=== PATIENT | female | born 1945 | race Caucasian/White ===

== ENCOUNTER 2019-10-30 14:37 | Inpatient (IN) | payer OTHER ==
[~2019-10-30] VITALS: Ht 157.5 cm; Wt 61.7 kg
[~2019-10-30 14:37] MED LIST: GLYCOPYRROLATE 0.2 MG/ML VIAL IJ ONE; LR 1,000 ML IV.SOLN IV ONE; MIDAZOLAM HCL 5 MG/5 ML VIAL IVP ONE; NEOSTIGMINE METHYLSULFATE 1 MG/ML, 10 ML VIAL IVP ONE; PROPOFOL 200MG/ 20ML VIAL (DIPRIVAN) IV ONE; ROCURONIUM BROMIDE 10 MG/ML (ZEMURON) IV ONE; SEVOFLURANE 15 MIN GAS INH ONE; fentaNYL CITRATE/PF 100 MCG/2 ML AMP IVP ONE
[2019-10-30 14:50] VITALS: BP_SYST 162
--- NOTE | 2019-10-30 14:52 | NUR ---
Placed in room 08. Placed on hall monitor, blood pressure machine and pulse oximeter. To gown for exam. Side rails up. Report given to XENIA Stevens.
--- NOTE | 2019-10-30 14:53 | NUR ---
ER Dr. Carmona at bedside examining patient.
--- NOTE | 2019-10-30 15:01 | NUR ---
Patient is awake, alert, and oriented x4. Family is at bedside. Patient states she drank coffee this morning and she isn't supposed to because it causes heartburn. Patient had heartburn around 1100 today, she states she does not have it at this time. Her family stated she came in due to her smartwatch notifying her of a high heart rate. Patient denies nausea, vomiting, SOB.
[2019-10-30 15:15] LABS: BASOPHILS % (AUTO) 0.2 % (0.0-2.0); EOSINOPHILS % (AUTO) 0.1 % (0.0-4.0); HEMATOCRIT 39.4 % (36-48); HEMOGLOBIN 12.7 g/dL (12.0-16.0); LYMPHOCYTES # (AUTO) 0.3 K/uL (1.0-5.5); LYMPHOCYTES % (AUTO) 4.9 % (20.5-51.5); MEAN CORPUSCULAR HEMOGLOBIN 26 pg (27-31); MEAN CORPUSCULAR HGB CONC 32 % (32-36); MEAN CORPUSCULAR VOLUME 81 fL (79.0-98.0); MONOCYTES % (AUTO) 0.4 % (1.7-9.3); NEUTROPHILS # (AUTO) 6.5 K/uL (1.8-7.7); NEUTROPHILS % (AUTO) 94.4 % (40.0-70.0); PLATELET COUNT (AUTO) 264 K/uL (130-430); RED BLOOD CELL COUNT(AUTO) 4.84 MIL/uL (4.2-6.2); RED CELL DISTRIBUTION WIDTH 13.9 % (9.0-15.0); WHITE BLOOD COUNT (AUTO) 6.9 K/uL (4.8-10.8)
[2019-10-30 15:24] LABS: ANION GAP 12 (5-15); CHLORIDE 97 mmol/L (98-107); CREATININE 0.94 mg/dL (0.55-1.30); GLUCOSE 156 mg/dL (70-99); POTASSIUM 3.5 mmol/L (3.5-5.1); SODIUM SERUM 138 mmol/L (136-145); UREA NITROGEN, BLOOD 18 mg/dL (8-21)
[2019-10-30 15:30] LABS: ALANINE AMINOTRANSFERASE 171 U/L (12-78); ALBUMIN 3.9 g/dL (3.4-4.8); ASPARTATE AMINOTRANSFERASE 353 U/L (10-37); TOTAL BILIRUBIN 1.3 mg/dL (0.0-1.0)
[2019-10-30] MEDS ORDERED: ONDANSETRON HCL 4 MG/2 ML VIAL IVP ONE (15:45)
[2019-10-30] MEDS ORDERED: NACL 0.9% 2,500 ML IV ONE (16:45)
[2019-10-30] MEDS ORDERED: VANCOMYCIN HCL 1,000 MG in NS 250 ML IV ONE (16:45)
[2019-10-30] MEDS ORDERED: PIPERACILLIN/TAZO 3.375 GM in NS 50 ML IV ONE (16:45)
[2019-10-30] MEDS ORDERED: PIPERACILLIN/TAZOBACTAM 3.375 GM/VIAL (ZOSYN) IV ONE ×2 (17:06→21:26)
[2019-10-30] MEDS ORDERED: VANCOMYCIN HCL 1000 MG/VIAL IV ONE (17:06)
--- NOTE | 2019-10-30 17:21 | NUR ---
Pt son, Enrique, would like to be notified of any change in pt condition.
--- NOTE | 2019-10-30 17:22 | NUR ---
Dr. Caromna notified of abnormal values. He verbalized understanding. Addendum: 10/30/19 at 1818 by [email or web address] Abnormal vitals.
--- NOTE | 2019-10-30 17:51 | NUR ---
Unable to complete medication reconcilliation at this time.
--- NOTE | 2019-10-30 17:52 | NUR ---
Patient will be admitted to care of Dr. Langley. Admitted to medsurg unit. Waiting for room assignement. Belongings list completed. Complete and up to date summary report printed. SBAR report to be given at bedside with opportunity for questions.
--- NOTE | 2019-10-30 18:14 | NUR ---
Transfer to [facility] via ACLS protocol. EMT present. IV present no signs or symptoms of infiltration.
--- NOTE | 2019-10-30 18:21 | NUR ---
ADMISSION: The patient, TOBIAS GONZALEZ, 74 y/o, F admitted by SHAAN PERKINS MD, was given written information regarding hospital policies, unit procedures and contact persons.
--- NOTE | 2019-10-30 18:30 | NUR ---
Opening Note received bedside SBAR report from AUTOMATION OPERATOR, patient brought to room via gurney, patient resting in bed, no acute distress noted, respirations even and unlabored on 2L nasal cannula, patient denies any pain, educated patient on use of call light and asked to call for assistance, patient verbalized understanding, call light in reach, bed in low and locked position, bed alarm on, patients family at bedside.
[2019-10-30 18:50] VITALS: BP_SYST 115
[2019-10-30 19:10] VITALS: BP_SYST 106
--- NOTE | 2019-10-30 19:23 | NUR ---
Closing Note bedside SBAR report given to receiving RN, patient resting in bed, respirations even and unlabored on 2L nasal cannula, no acute distress noted, patients family at bedside, educated patient on use of call light and asked to call for assistance, patient verbalized understanding, call light in reach, bed in low and locked position, bed alarm on, care endorsed to maintenance supervisor 2nd shift RN.
[2019-10-30 19:30] VITALS: BP_SYST 112
--- NOTE | 2019-10-30 19:30 | NUR ---
OPENING NOTES Received patient resting in bed, 2L NC, no acute respiratory distress observed, IVF running, dressings c/d/i. Family at bedside. Oriented patient to plan of care and call light, NPO at midnight. Call light within reach, bed alarm on, bed at lowest position. Will continue to monitor.
--- NOTE | 2019-10-30 20:30 | NUR ---
Titrated patient's oxygen to 1L NC, patient tolerating well at 95% O2. Discontinued IV site at Left AC due to infiltration, catheter intact. Will continue to monitor.
[2019-10-30 23:00] VITALS: BP_SYST 104
[2019-10-30] MEDS ORDERED: ALBUTEROL SULFATE 0.083% 2.5 MG/3 ML VIAL.NEB INH PRN (23:00)
[2019-10-30] MEDS ORDERED: MORPHINE 2 MG/ML INJ. SYRINGE IVP PRN (23:00)
[2019-10-30] MEDS ORDERED: ACETAMINOPHEN 325 MG TABLET PO PRN (23:00)
[2019-10-30] MEDS ORDERED: MORPHINE 4 MG/ML INJ. SYRINGE IVP PRN (23:00)
[2019-10-30] MEDS ORDERED: ONDANSETRON HCL 4 MG/2 ML VIAL IVP PRN (23:00)
[2019-10-31] VITALS (10 sets, daily range): BP systolic 93–129
--- NOTE | 2019-10-31 00:05 | NUR ---
Patient is resting, no signs of acute respiratory distress observed. Blankets provided. Will continue to monitor.
[2019-10-31] MEDS: NACL 0.9% 1,000 ML IV SCH ×3 (00:10→18:20)
[2019-10-31] MEDS: PIPERACILLIN/TAZO 3.375/DEX-IS 50 ML IV SCH ×7 (00:10→23:09)
--- NOTE | 2019-10-31 01:11 | NUR ---
CONSULTATION PAGED/CALLED Reason for Consultation: PRE OP Person Who was Notified: GUILLERMO Consulting Physician: Musical Instrument Maker Specialty: CARDIO Ordering Physician:
--- NOTE | 2019-10-31 02:22 | NUR ---
Patient is resting, eyes closed. No signs of distress observed. Will continue to monitor.
--- NOTE | 2019-10-31 04:40 | NUR ---
Patient is asleep, rise and fall of chest observed. IVF running, Call light within reach, bed alarm on, bed at lowest position. will continue to monitor.
[2019-10-31 04:56] LABS: BASOPHILS % (AUTO) 0.1 % (0.0-2.0); HEMOGLOBIN 11.5 g/dL (12.0-16.0); LYMPHOCYTES # (AUTO) 0.5 K/uL (1.0-5.5); LYMPHOCYTES % (AUTO) 2.4 % (20.5-51.5); MEAN CORPUSCULAR HEMOGLOBIN 26 pg (27-31); MEAN CORPUSCULAR HGB CONC 33 % (32-36); MEAN CORPUSCULAR VOLUME 80 fL (79.0-98.0); MONOCYTES # (AUTO) 0.5 K/uL (0.0-1.0); MONOCYTES % (AUTO) 2.5 % (1.7-9.3); PLATELET COUNT (AUTO) 200 K/uL (130-430); RED BLOOD CELL COUNT(AUTO) 4.36 MIL/uL (4.2-6.2); RED CELL DISTRIBUTION WIDTH 13.9 % (9.0-15.0)
[2019-10-31 05:17] LABS: ALANINE AMINOTRANSFERASE 383 U/L (12-78); ALBUMIN 2.8 g/dL (3.4-4.8); ANION GAP 11 (5-15); ASPARTATE AMINOTRANSFERASE 428 U/L (10-37); CALCIUM 7.6 mg/dL (8.4-11.0); CHLORIDE 104 mmol/L (98-107); CREATININE 0.99 mg/dL (0.55-1.30); GLUCOSE 145 mg/dL (70-99); SODIUM SERUM 141 mmol/L (136-145); TOTAL BILIRUBIN 2.7 mg/dL (0.0-1.0); UREA NITROGEN, BLOOD 19 mg/dL (8-21)
[2019-10-31 07:13] LABS: BILIRUBIN,URINE 2+ (NEGATIVE); BLOOD, URINE NEGATIVE (NEGATIVE); CLARITY/URINE CLEAR (CLEAR); COLOR,URINE YELLOW (YELLOW); GLUCOSE,URINE NEGATIVE (NEGATIVE); KETONES,URINE TRACE (NEGATIVE); LEUKOCYTE ESTERASE ,URINE NEGATIVE (NEGATIVE); NITRITE, URINE NEGATIVE (NEGATIVE); PH,URINE 5.5 (5.0-8.0); PROTEIN URINE TRACE (NEGATIVE)
[2019-10-31 07:15] LABS: BACTERIA,URINE FEW /HPF (None Seen); RBC,URINE 0-3 /HPF (0-3); WBC,URINE 0-3 /HPF (0-3)
[2019-10-31 07:16] LABS: URINE AMORPHOUS URATE 1+ /HPF (None Seen)
--- NOTE | 2019-10-31 07:22 | NUR ---
CLOSING NOTES Patient is resting, no respiratory distress observed, 1L NC, IVF running, dressings c/d/i. Call light within reach, bed alarm on, bed at lowest position. Dr. Rosas has not spoken to patient yet, Commode at bedside, all needs met throughout shift, NPO from midnight, Will endorse care to oncoming shift.
--- NOTE | 2019-10-31 08:00 | NUR ---
Jed/GRACIELA, DR. SAUL AT BEDSIDE VERBALIZING ON PURPOSES OF THE PROCEDURE. PATIENT WILL BE TAKEN TO SURGERY
[2019-10-31] MEDS ORDERED: IOHEXOL 50 ML IV ONE (09:32)
[2019-10-31] MEDS ORDERED: fentaNYL CITRATE/PF 100 MCG/2 ML AMP IVP PRN ×2 (09:45)
[2019-10-31] MEDS ORDERED: ONDANSETRON HCL 4 MG/2 ML VIAL IVP PRN (09:45)
[2019-10-31] MEDS ORDERED: fentaNYL CITRATE/PF 100 MCG/2 ML AMP ONE (11:17)
--- NOTE | 2019-10-31 11:40 | NUR ---
Post operative admission notes From PACU after laparoscopic cholecystectomy with cholangiogram, patient awake /oriented x3 feeling sleepy able to answer question, vitals sign monitored , with 4 abdominal incision dry/clean no bleeding , denies any pain , will monitor.
[2019-10-31] MEDS ORDERED: POTASSIUM CHLORIDE 40 MEQ in NS 250 ML IV ONE (12:00)
--- NOTE | 2019-10-31 14:00 | NUR ---
PATIENT IS REINFORCED ON INCENTIVE SPIROMETER. ABLE TO DO 500ML AT THIS TIME.
--- NOTE | 2019-10-31 16:20 | NUR ---
PATIENT IS TAKEN TO BEDSIDE COMMODE. TOLERATES WITHOUT DISTRESS.
--- NOTE | 2019-10-31 18:20 | NUR ---
PATIENT IS SEEN CONSUMING A CLEAR LIQUID DIET. WILL CONTINUE TO MONITOR.
--- NOTE | 2019-10-31 19:20 | NUR ---
OPENING NOTES Received patient resting in bed, no acute respiratory distress observed, family at bedside, IVF running, dressings c/d/i. Oriented patient to plan of care and call light, NPO at midnight. Call light within reach, bed alarm on, bed at lowest position. Will continue to monitor.
--- NOTE | 2019-10-31 20:03 | NUR ---
Patient is in pain, 4/10, but blood pressure is low, 93/55, and PRN pain medications will not be provided at this time, will continue to monitor.
--- NOTE | 2019-10-31 22:20 | NUR ---
Patient is resting, eyes closed. Helped to bedpan, patient refuses to try to ambulate to the commode because of pain. Educated patient on importance of ambulating, but refuses. Will continue to monitor
--- NOTE | 2019-11-01 00:14 | NUR ---
Patient is resting, watching television, no distress observed. Will continue to monitor.
[2019-11-01 00:23] VITALS: BP_SYST 92
--- NOTE | 2019-11-01 04:02 | NUR ---
OPENING NOTES Received patient resting in bed, no acute respiratory distress observed, family at bedside, IVF running, dressings c/d/i. Oriented patient to plan of care and call light, NPO at midnight. Call light within reach, bed alarm on, bed at lowest position. Will continue to monitor. Addendum: 11/01/19 at 0403 by Steve Felder RN WRONG TIME, PLEASE DISREGARD
--- NOTE | 2019-11-01 04:06 | NUR ---
Patient is asleep, eyes closed, rise and fall of chest observed. Safety precautions in place. Will continue to monitor.
[2019-11-01] MEDS: NACL 0.9% 1,000 ML IV SCH ×3 (05:18→23:57)
[2019-11-01] MEDS: PIPERACILLIN/TAZO 3.375/DEX-IS 50 ML IV SCH ×4 (05:27→23:55)
[2019-11-01 07:11] LABS: BASOPHILS % (AUTO) 0.1 % (0.0-2.0); HEMATOCRIT 31.1 % (36-48); HEMOGLOBIN 10.1 g/dL (12.0-16.0); LYMPHOCYTES # (AUTO) 0.6 K/uL (1.0-5.5); LYMPHOCYTES % (AUTO) 5.5 % (20.5-51.5); MEAN CORPUSCULAR HEMOGLOBIN 26 pg (27-31); MEAN CORPUSCULAR HGB CONC 33 % (32-36); MEAN CORPUSCULAR VOLUME 81 fL (79.0-98.0); MONOCYTES # (AUTO) 0.2 K/uL (0.0-1.0); MONOCYTES % (AUTO) 1.8 % (1.7-9.3); NEUTROPHILS # (AUTO) 10.3 K/uL (1.8-7.7); NEUTROPHILS % (AUTO) 92.6 % (40.0-70.0); PLATELET COUNT (AUTO) 146 K/uL (130-430); RED BLOOD CELL COUNT(AUTO) 3.84 MIL/uL (4.2-6.2); RED CELL DISTRIBUTION WIDTH 14.3 % (9.0-15.0); WHITE BLOOD COUNT (AUTO) 11.1 K/uL (4.8-10.8)
--- NOTE | 2019-11-01 07:20 | NUR ---
CLOSING NOTES Received patient resting in bed, no acute respiratory distress observed, family at bedside, IVF running, dressings c/d/i. NPO at midnight maintained. Call light within reach, bed alarm on, bed at lowest position. Blood pressure monitored throughout shift. All needs met throughout shift. Will endorse care to oncoming shift.
[2019-11-01 07:30] LABS: ALANINE AMINOTRANSFERASE 226 U/L (12-78); ALBUMIN 2.3 g/dL (3.4-4.8); ANION GAP 6 (5-15); ASPARTATE AMINOTRANSFERASE 120 U/L (10-37); CALCIUM 7.6 mg/dL (8.4-11.0); CHLORIDE 103 mmol/L (98-107); CREATININE 0.69 mg/dL (0.55-1.30); GLUCOSE 126 mg/dL (70-99); SODIUM SERUM 136 mmol/L (136-145); TOTAL BILIRUBIN 2.9 mg/dL (0.0-1.0); UREA NITROGEN, BLOOD 13 mg/dL (8-21)
[2019-11-01 07:47] VITALS: BP_SYST 105
[2019-11-01] MEDS: HYDROcodone/ACETAMIN 5-325 MG TAB (NORCO/ VICODIN) PO PRN ×2 (07:52→18:24)
--- NOTE | 2019-11-01 08:00 | NUR ---
Patient kept NPO for possible procedure , kept with IV fluid infusing well , using incentive spirometer reaching 1500 ml, abdominal incision x 4 dry/clean no redness, safety, pain management discussed with the patient verbalized understanding.
--- NOTE | 2019-11-01 09:30 | NUR ---
Mobility Ambulate to bathroom with standby assist tolerates well with out dizziness.
[2019-11-01] MEDS ORDERED: POTASSIUM CHLORIDE 40 MEQ in 0.45% NS 250 ML IV ONE (09:45)
--- NOTE | 2019-11-01 12:50 | NUR ---
Taken for MRCP minimal pain incision tolerable.
[2019-11-01 12:56] VITALS: BP_SYST 100
--- NOTE | 2019-11-01 14:59 | NUR ---
Paged. Dr. Wagner for MRCP result.
[2019-11-01 16:50] VITALS: BP_SYST 100
--- NOTE | 2019-11-01 18:00 | NUR ---
Patient instructed NPO post midnight, for possible ERCP in am, clear liquid served tolerates well, able to ambulate to bathroom moderate pain , due pain medication given,safety/fall precaution initiated.
[2019-11-01 19:10] VITALS: BP_SYST 93
--- NOTE | 2019-11-01 19:10 | NUR ---
OPENING NOTES Patient is resting, A/Ox4, no signs of respiratory distress or distress. IV site patent, IVF running, dressings c/d/i. SCDs on. Oriented patient to plan of care of NPO after midnight and call light use, patient verbalizes back proper use of call light, call light within reach, bed alarm on, bed at lowest position. Will continue to monitor.
--- NOTE | 2019-11-01 23:45 | NUR ---
Patient is resting, will be NPO at midnight. Ambulated with assistance to the restroom. Will continue to monitor.
[2019-11-01 23:53] VITALS: BP_SYST 96
--- NOTE | 2019-11-02 01:11 | NUR ---
Patient is resting, no signs of acute respiratory distress observed. Will continue to monitor.
--- NOTE | 2019-11-02 04:15 | NUR ---
Patient ambulated with assistance to the restroom. Patient is also passing gas, yellow urine. No signs of distress observed. IVF running, dressings c/d/i. Will continue to monitor.
[2019-11-02] MEDS: PIPERACILLIN/TAZO 3.375/DEX-IS 50 ML IV SCH ×4 (05:12→22:56)
--- NOTE | 2019-11-02 05:59 | NUR ---
CLOSING NOTES Received patient resting in bed, no acute respiratory distress observed, IVF running, dressings c/d/i. NPO at midnight maintained. Call light within reach, bed alarm on, bed at lowest position. Will endorse care to oncoming shift.
[2019-11-02 08:00] VITALS: BP_SYST 124
[2019-11-02 11:02] LABS: PROTHROMBIN TIME 9.9 SECS (9.5-12.5)
[2019-11-02 11:18] LABS: HEMOGLOBIN 9.8 g/dL (12.0-16.0); MEAN CORPUSCULAR HEMOGLOBIN 26 pg (27-31); MEAN CORPUSCULAR HGB CONC 33 % (32-36); MEAN CORPUSCULAR VOLUME 81 fL (79.0-98.0); PLATELET COUNT (AUTO) 131 K/uL (130-430); RED BLOOD CELL COUNT(AUTO) 3.73 MIL/uL (4.2-6.2); RED CELL DISTRIBUTION WIDTH 13.9 % (9.0-15.0); WHITE BLOOD COUNT (AUTO) 6.5 K/uL (4.8-10.8)
[2019-11-02 11:19] LABS: BASOPHILS % (AUTO) 0.2 % (0.0-2.0); EOSINOPHILS % (AUTO) 0.6 % (0.0-4.0); LYMPHOCYTES # (AUTO) 0.7 K/uL (1.0-5.5); LYMPHOCYTES % (AUTO) 10.8 % (20.5-51.5); MONOCYTES # (AUTO) 0.2 K/uL (0.0-1.0); MONOCYTES % (AUTO) 3.2 % (1.7-9.3); NEUTROPHILS # (AUTO) 5.5 K/uL (1.8-7.7); NEUTROPHILS % (AUTO) 85.2 % (40.0-70.0)
--- NOTE | 2019-11-02 11:25 | NUR ---
Nutrition Update Michael Scale 18 noted. Pt admitted for cholecystitis. Diet: clear liquid BMI: 24.9 kg/m2 RD to follow per nutrition care standards.
[2019-11-02 11:44] LABS: ANION GAP 4 (5-15); CALCIUM 7.9 mg/dL (8.4-11.0); CHLORIDE 104 mmol/L (98-107); CREATININE 0.62 mg/dL (0.55-1.30); GLUCOSE 107 mg/dL (70-99); POTASSIUM 3.1 mmol/L (3.5-5.1); SODIUM SERUM 134 mmol/L (136-145); UREA NITROGEN, BLOOD 8 mg/dL (8-21)
[2019-11-02 11:45] LABS: ALANINE AMINOTRANSFERASE 148 U/L (12-78); ALBUMIN 2.1 g/dL (3.4-4.8); BILIRUBIN,DIRECT 0.7 mg/dL (0.0-0.3); TOTAL BILIRUBIN 1.2 mg/dL (0.0-1.0)
[2019-11-02 11:46] LABS: ASPARTATE AMINOTRANSFERASE 47 U/L (10-37)
[2019-11-02 12:38] VITALS: BP_SYST 124
[2019-11-02] MEDS: NACL 0.9% 1,000 ML IV SCH ×2 (13:21→22:56)
[2019-11-02 16:37] VITALS: BP_SYST 131
[2019-11-02 16:41] VITALS: BP_SYST 124
--- NOTE | 2019-11-02 19:35 | NUR ---
Opening notes Received report. Patient is resting in bed, watching TV. No signs of distress noted. Breathing even and unlabored. IV patent and intact, infusing fluids. No complaints of pain. Patient tolerated today's meals. No nausea or vomiting noted. Call light with the patient. Safety precautions in place.
--- NOTE | 2019-11-02 19:38 | NUR ---
Toñito Langley s/w Raina
--- NOTE | 2019-11-02 21:30 | NUR ---
Resting Patient ambulatory with steady, no assistance needed. No signs of distress noted. Breathing even and unlabored. IVF infusing well. Call light with the patient. Safety precautions in place.
[2019-11-02] MEDS ORDERED: POTASSIUM CHLORIDE 20 MEQ TAB.PRT.SR PO ONE (23:00)
--- NOTE | 2019-11-03 | NUR ---
Resting Medications given. Spoke to Dr. Cohen in regards to potassium of 3.1. Orders received and carried out. Educated the action and side effects of medications. Patient verbalized understanding. Call light with the patient. Safety precautions in place.
[2019-11-03 01:36] VITALS: BP_SYST 124
--- NOTE | 2019-11-03 02:00 | NUR ---
Sleeping No signs of distress noted. Breathing even and unlabored. IVF infusing well. Call light with the patient. Safety precautions in place.
--- NOTE | 2019-11-03 04:13 | NUR ---
Sleeping No signs of distress noted. Breathing even and unlabored. IVF infusing well. No needs at this time. Call light with the patient. Safety precautions in place.
[2019-11-03] MEDS: PIPERACILLIN/TAZO 3.375/DEX-IS 50 ML IV SCH (05:44)
--- NOTE | 2019-11-03 06:42 | NUR ---
Closing notes Patient resting in bed. No signs of distress noted. Breathing even and unlabored. IV was accidently removed. New IV inserted into left wrist 22 gauge. Resumed fluids. All needs met throughout the shift. Call light with the patient. Safety precautions in place. Will endorse care to day shift RN.
[2019-11-03] MEDS: NACL 0.9% 1,000 ML IV SCH (06:43)
[2019-11-03 07:40] LABS: ALBUMIN 2.3 g/dL (3.4-4.8); BILIRUBIN,DIRECT 0.5 mg/dL (0.0-0.3); TOTAL BILIRUBIN 0.9 mg/dL (0.0-1.0)
--- NOTE | 2019-11-03 07:55 | NUR ---
Opening note patient resting in bed, a/ox4, denies pain, assessment complete, x4 abdominal incisions clean, dry, intact, well-approximated, no drainage, no redness, no s/s of infection, IV line is patent and infusing well, educated the patient elevator constructor helper light system and plan of care, she verbalized understanding at this time, bed in lowest position, two side rails up, call light placed within reach, fall and aspiration precautions in place.
--- NOTE | 2019-11-03 09:45 | NUR ---
RN rounds patient ambulated to restroom, steady gait, denies pain, confirmed with patient that she spoke with doctors about discharge today, she confirmed, patient's family is at bedside, will proceed with discharge today, continuing to monitor the patient, bed in lowest position, two side rails up, call light placed within reach, fall and aspiration precautions in place.
[2019-11-03] MEDS ORDERED: HYDR-4272 PO (10:04)
[2019-11-03 10:05] VITALS: BP_SYST 133
[2019-11-03 10:13] VITALS: BP_SYST 133
--- NOTE | 2019-11-03 10:45 | NUR ---
D/C Patient Patient given medication reconciliation form and D/C instructions. Exit Care provided. Patient verbalized understanding. MD discussed with patient the results and treatment provided. Ambulatory with steady gait for discharge to home. Patient in stable condition, ID band removed. IV catheter removed, intact and dressing applied, no active bleeding. Rx of NORCO given. Patient educated on pain management. All belongings sent with patient.
--- NOTE | 2019-11-03 12:12 | NUR ---
DC Planning: Updated to [place] , the pt is discharge to home today.
--- NOTE | 2019-11-09 11:57 | NUR ---
Discharge Follow Up Phone Call Phoned patient, . Patient stated she was doing well. She did not need to fill her prescription for [place]. She has scheduled her follow up appointments and will see her PCP on 11/11/[address] Rosas on 11/28/19. Patient is up and around. No questions or concerns.
== END 2019-11-03 10:45 | disposition home or self-care (01) | DRG 854 ==
LOC: SED 14:37 → STU 17:51 → SMU 18:33
PROVIDERS: ADMIT Internal Medicine Hospice and Palliative Medicine; ATTEND Internal Medicine Hospice and Palliative Medicine
PROC: BF131ZZ Fluoroscopy of Gallbladder and Bile Ducts using Low Osmolar Contrast (ICD-10-PCS; 2019-10-31)
PROC: 0FT44ZZ Resection of Gallbladder, Percutaneous Endoscopic Approach (ICD-10-PCS; principal; 2019-10-31 08:00)
DX: A41.9 Sepsis, unspecified organism (principal); K80.62 Calculus of gallbladder and bile duct with acute cholecystitis without obstruction; K21.9 Gastro-esophageal reflux disease without esophagitis; E11.9 Type 2 diabetes mellitus without complications; E78.5 Hyperlipidemia, unspecified; I25.10 Atherosclerotic heart disease of native coronary artery without angina pectoris; E78.00 Pure hypercholesterolemia, unspecified; I25.2 Old myocardial infarction; Z79.899 Other long term (current) drug therapy; Z98.51 Tubal ligation status
CPT/HCPCS: 36415; 71045; 74181; 74300; 76700-TC; 80053; 80076; 81000-TC; 82248-TC; 82550-TC; 83605; 83880; 84484; 85025; 85610-TC; 85730-TC; 86886; 86900; 86901; 87040-TC; 87086; 88304; 93005; 93306; 94760; 96365; 96368; 96375; 99285; C1727; J2250; J2270; J2405; J2543; J2704; J2710; J3010; J3370; J3480; J3490; J7030; J7050; J7060; J7120; Q9967